=== PATIENT | male | born 1990 ===

== ENCOUNTER 2023-06-04 09:20 | Outpatient (CLI) | payer MEDICAID, SELFPAY ==
--- NOTE | 2023-06-04 09:15 | RT.EKG_ITS ---
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
== END 2023-06-04 09:21 | disposition home or self-care (01) ==
PROVIDERS: Visit Provider Family Medicine
DX: Z79.899 Other long term (current) drug therapy (principal)
CPT/HCPCS: 93005; 93010